=== PATIENT | male | born 1965 | race Caucasian/White ===

== ENCOUNTER 2019-10-19 11:06 | Emergency (ER) | payer BC ==
[~2019-10-19] VITALS: Ht 185.4 cm; Wt 127.0 kg
--- NOTE | 2019-10-19 11:20 | NUR ---
PATIENT TO ER #3 AND PLACED ON AUTOMOTIVE REFINISHER AND SAO2
[2019-10-19 11:21] VITALS: BP_SYST 151
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
[2019-10-19 11:54] LABS: BASOPHILS % (AUTO) 0.2 % (0.0-2.0); HEMOGLOBIN 12.2 g/dL (14.0-18.0); LYMPHOCYTES # (AUTO) 1.2 K/uL (1.0-5.5); LYMPHOCYTES % (AUTO) 15.1 % (20.5-51.5); MEAN CORPUSCULAR HEMOGLOBIN 31 pg (27-31); MEAN CORPUSCULAR HGB CONC 33 % (32-36); MEAN CORPUSCULAR VOLUME 93 fL (79.0-98.0); NEUTROPHILS # (AUTO) 5.7 K/uL (1.8-7.7); NEUTROPHILS % (AUTO) 71.7 % (40.0-70.0); PLATELET COUNT (AUTO) 267 K/uL (130-430); RED BLOOD CELL COUNT(AUTO) 3.99 MIL/uL (4.2-6.2); RED CELL DISTRIBUTION WIDTH 13.6 % (9.0-15.0); WHITE BLOOD COUNT (AUTO) 7.9 K/uL (4.8-10.8)
[2019-10-19 12:08] LABS: ANION GAP 11 (5-15); CALCIUM 9.7 mg/dL (8.4-11.0); CHLORIDE 104 mmol/L (98-107); CREATININE 1.07 mg/dL (0.55-1.30); GLUCOSE 84 mg/dL (70-99); POTASSIUM 3.7 mmol/L (3.5-5.1); SODIUM SERUM 138 mmol/L (136-145); UREA NITROGEN, BLOOD 17 mg/dL (8-21)
[2019-10-19 12:12] LABS: ALANINE AMINOTRANSFERASE 39 U/L (12-78); ALBUMIN 3.4 g/dL (3.4-4.8); ASPARTATE AMINOTRANSFERASE 31 U/L (10-37); PROTHROMBIN TIME 10.3 SECS (9.5-12.5); TOTAL BILIRUBIN 0.9 mg/dL (0.0-1.0); VALPROIC ACID 53 ug/mL (50-100)
[2019-10-19 12:14] LABS: ALCOHOL, BLOOD < 3 mg/dL (<10); GFR AFRICAN AMERICAN 92 mL/min (>90)
[2019-10-19 12:42] LABS: BILIRUBIN,URINE 2+ (NEGATIVE); BLOOD, URINE NEGATIVE (NEGATIVE); CLARITY/URINE CLEAR (CLEAR); COLOR,URINE YELLOW (YELLOW); GLUCOSE,URINE NEGATIVE (NEGATIVE); KETONES,URINE 2+ (NEGATIVE); LEUKOCYTE ESTERASE ,URINE NEGATIVE (NEGATIVE); NITRITE, URINE NEGATIVE (NEGATIVE); PROTEIN URINE TRACE (NEGATIVE)
[2019-10-19 12:51] LABS: BACTERIA,URINE RARE /HPF (None Seen); MUCUS,URINE 1+ /LPF (None Seen); RBC,URINE 0-3 /HPF (0-3); WBC,URINE 0-3 /HPF (0-3)
[2019-10-19 12:53] LABS: BARBITURATE, URINE NEGATIVE (NEG <=200); BENZODIAZEPINE, URINE NEGATIVE (NEG <=150); CANNABINOID, URINE NEGATIVE (NEG <=50); COCAINE, URINE NEGATIVE (NEG <=150); METHAMPHETAMINES SCREEN,URINE NEGATIVE (NEG <=500); OPIATE, URINE NEGATIVE (NEG <=100); PHENCYCLIDINE SCREEN,URINE NEGATIVE (NEG <=25); UR TRICYCLIC ANTIDEPRESSANTS POSITIVE (NEG <=300); URINE AMPHETAMINE NEGATIVE (NEG <=500); URINE METHADONE NEGATIVE (NEG <=200); URINE OXYCODONE SCREEN NEGATIVE (NEG <=100); URINE PROPOXYPHENE SCREEN NEGATIVE (NEG <=300)
--- NOTE | 2019-10-19 13:30 | NUR ---
Neftali mcclure in [facility] - 10/19/19 at 1644 by [email or web address] PT RESTING IN [place] DI[facility] C/O AT THIS TIME, VSS
--- NOTE | 2019-10-19 13:35 | NUR ---
PT RESTING IN [facility] NO C/O AT THIS TIME, VSS
[2019-10-19] MEDS ORDERED: LITH300T PO (14:44)
[2019-10-19] MEDS ORDERED: CLOZ100T32 PO (14:44)
[2019-10-19] MEDS ORDERED: DIVA500T4 PO (14:44)
[2019-10-19] MEDS ORDERED: DOCU250C14 PO (14:44)
[2019-10-19] MEDS ORDERED: CLON2TAB11 PO (14:44)
--- NOTE | 2019-10-19 15:15 | NUR ---
NO DISTRESS NOTED, NO C/O, VSS
--- NOTE | 2019-10-19 15:30 | NUR ---
Neftali mcclure in [facility] - 10/19/19 at 1644 by [email or web address] PT IN [place] ON MONITOR, NO S/S OF DISTRESS.
--- NOTE | 2019-10-19 16:15 | NUR ---
TRANSPORT ARRIVED, PT TAKEN BACK TO ORIGINAL FACILITY, VSS, REPORT GIVEN.
[2019-10-19 16:31] VITALS: BP_SYST 150
--- NOTE | 2019-10-19 16:32 | NUR ---
Note undone in EDM - 10/19/19 at 1644 by KRISTEN Patient given written and verbal discharge instructions and verbalizes understanding. ER MD discussed with patient the results and treatment provided. Patient in stable condition. ID arm band removed. IV catheter removed intact and dressing applied, no active bleeding. Rx of LEVAQUIN given. Patient educated on pain management and to follow up with PMD. Pain Scale 3. Opportunity for questions provided and answered. Medication side effect fact sheet provided.
[2019-10-19 20:09] LABS: LITHIUM 1.03 mEq/L (0.50-1.0)
[2019-10-20] MEDS ORDERED: DIVA500T4 PO (10:32)
[2019-10-20] MEDS ORDERED: CLOZ100T32 PO (11:23)
[2019-10-20] MEDS ORDERED: DIVA-74 PO (11:42)
[2019-10-20] MEDS ORDERED: MOM PO (11:42)
[2019-10-20] MEDS ORDERED: VIS50 PO (11:42)
[2019-10-20] MEDS ORDERED: CLON2TAB11 PO (13:22)
== END 2019-10-19 16:31 ==
LOC: SED 11:06
DX: S00.12XA Contusion of left eyelid and periocular area, initial encounter (principal); F20.9 Schizophrenia, unspecified; R45.851 Suicidal ideations; F31.9 Bipolar disorder, unspecified; W50.0XXA Accidental hit or strike by another person, initial encounter; Y93.89 Activity, other specified; Y92.89 Other specified places as the place of occurrence of the external cause; Y99.8 Other external cause status
CPT/HCPCS: 36415; 70450; 70486; 71045; 80053; 80164; 80178; 80307; 81000; 84484; 85025; 85610; 85730; 93005; 99285; G0482

== ENCOUNTER 2019-10-19 19:23 | Inpatient (IN) | payer BC ==
[~2019-10-19] VITALS: Ht 190.5 cm; Wt 120.7 kg
[2019-10-19 19:23] VITALS: BP_SYST 109
[~2019-10-19 19:23] MED LIST: CLON2TAB11 PO; CLOZ100T32 PO; DIVA500T4 PO; DOCU250C14 PO; LITH300T PO
[2019-10-19 20:13] LABS: BASOPHILS % (AUTO) 0.1 % (0.0-2.0); HEMATOCRIT 37.3 % (36-54); HEMOGLOBIN 12.2 g/dL (14.0-18.0); LYMPHOCYTES # (AUTO) 1.1 K/uL (1.0-5.5); LYMPHOCYTES % (AUTO) 13.1 % (20.5-51.5); MEAN CORPUSCULAR HEMOGLOBIN 31 pg (27-31); MEAN CORPUSCULAR HGB CONC 33 % (32-36); MEAN CORPUSCULAR VOLUME 94 fL (79.0-98.0); MONOCYTES # (AUTO) 1.1 K/uL (0.0-1.0); MONOCYTES % (AUTO) 13.5 % (1.7-9.3); NEUTROPHILS % (AUTO) 73.3 % (40.0-70.0); PLATELET COUNT (AUTO) 265 K/uL (130-430); RED BLOOD CELL COUNT(AUTO) 3.99 MIL/uL (4.2-6.2); RED CELL DISTRIBUTION WIDTH 13.5 % (9.0-15.0); WHITE BLOOD COUNT (AUTO) 8.3 K/uL (4.8-10.8)
[2019-10-19 20:21] LABS: ANION GAP 12 (5-15); CALCIUM 9.4 mg/dL (8.4-11.0); CHLORIDE 105 mmol/L (98-107); GLUCOSE 94 mg/dL (70-99); POTASSIUM 3.8 mmol/L (3.5-5.1); SODIUM SERUM 141 mmol/L (136-145); UREA NITROGEN, BLOOD 14 mg/dL (8-21)
[2019-10-19 20:25] LABS: GFR AFRICAN AMERICAN 99 mL/min (>90)
[2019-10-19 20:28] LABS: PROTHROMBIN TIME 10.4 SECS (9.5-12.5)
[2019-10-19 20:36] LABS: ACETAMINOPHEN 2 ug/mL (1-30); ALANINE AMINOTRANSFERASE 40 U/L (12-78); ALBUMIN 3.3 g/dL (3.4-4.8); ASPARTATE AMINOTRANSFERASE 25 U/L (10-37); THYROID STIMULATING HORMONE 0.44 uIu/mL (0.36-3.74); TOTAL BILIRUBIN 0.7 mg/dL (0.0-1.0)
[2019-10-19 20:40] LABS: ALCOHOL, BLOOD < 3 mg/dL (<10)
[2019-10-19 20:44] LABS: BILIRUBIN,URINE 2+ (NEGATIVE); BLOOD, URINE 2+ (NEGATIVE); COLOR,URINE YELLOW (YELLOW); GLUCOSE,URINE NEGATIVE (NEGATIVE); KETONES,URINE 3+ (NEGATIVE); LEUKOCYTE ESTERASE ,URINE TRACE (NEGATIVE); NITRITE, URINE NEGATIVE (NEGATIVE); PROTEIN URINE 1+ (NEGATIVE)
[2019-10-19] MEDS ORDERED: cefTRIAXone 1 GM IVPB PREMIX 50 ML IV ONE (20:45)
[2019-10-19] MEDS ORDERED: ACYCLOVIR IV 750 MG in D5W 100 ML IV ONE (20:45)
[2019-10-19] MEDS ORDERED: VANCOMYCIN HCL 1,000 MG in NS 250 ML IV ONE (20:45)
[2019-10-19 20:48] LABS: CLARITY/URINE HAZY (CLEAR)
[2019-10-19 20:57] LABS: BARBITURATE, URINE NEGATIVE (NEG <=200); BENZODIAZEPINE, URINE POSITIVE (NEG <=150); CANNABINOID, URINE NEGATIVE (NEG <=50); COCAINE, URINE NEGATIVE (NEG <=150); METHAMPHETAMINES SCREEN,URINE NEGATIVE (NEG <=500); OPIATE, URINE NEGATIVE (NEG <=100); PHENCYCLIDINE SCREEN,URINE NEGATIVE (NEG <=25); URINE AMPHETAMINE NEGATIVE (NEG <=500); URINE METHADONE NEGATIVE (NEG <=200); URINE OXYCODONE SCREEN NEGATIVE (NEG <=100)
[2019-10-19 20:58] LABS: UR TRICYCLIC ANTIDEPRESSANTS POSITIVE (NEG <=300); URINE PROPOXYPHENE SCREEN NEGATIVE (NEG <=300)
[2019-10-19 21:06] LABS: BACTERIA,URINE FEW /HPF (None Seen)
[2019-10-19] MEDS ORDERED: ACYCLOVIR SODIUM 50 MG/ML VIAL IV ONE (21:24)
[2019-10-19] MEDS ORDERED: VANCOMYCIN HCL 1000 MG/VIAL IV ONE (21:24)
[2019-10-20] VITALS (7 sets, daily range): BP systolic 123–148
[2019-10-20] MEDS ORDERED: VANCOMYCIN HCL 1,500 MG in NS 500 ML IV SCH (08:00)
[2019-10-20] MEDS ORDERED: DIVA500T4 PO (10:32)
[2019-10-20] MEDS ORDERED: CLOZ100T32 PO (11:23)
[2019-10-20] MEDS ORDERED: MOM PO (11:42)
[2019-10-20] MEDS ORDERED: VIS50 PO (11:42)
[2019-10-20] MEDS ORDERED: DIVA-74 PO (11:42)
[2019-10-20] MEDS ORDERED: MILK OF MAGNESIA 30 ML UDC PO SCH (13:15)
[2019-10-20] MEDS ORDERED: CLON2TAB11 PO (13:22)
[2019-10-20] MEDS ORDERED: clonazePAM 0.5 MG TABLET PO PRN (13:30)
[2019-10-20] MEDS: DIVALPROEX SODIUM 500 MG TABLET( DEPAKOTE) PO SCH ×3 (14:08→22:48)
[2019-10-20] MEDS: clonazePAM 0.5 MG TABLET PO SCH ×3 (15:24→22:48)
[2019-10-20] MEDS: KCL 20 mEq in D5/0.45NS 1000mL 1,000 ML IV SCH (15:25)
[2019-10-20] MEDS: DOCUSATE SODIUM 250 MG CAPSULE PO SCH ×2 (21:00→22:48)
[2019-10-20] MEDS: CLOZAPINE 100 MG TABLET PO SCH (21:00)
[2019-10-20] MEDS: ACYCLOVIR IV 750 MG in D5W 100 ML IV SCH (22:47)
[2019-10-20] MEDS: ENOXAPARIN SODIUM 40 MG/0.4 ML SYRINGE SUBCUT SCH (22:50)
[2019-10-21] MEDS: KCL 20 mEq in D5/0.45NS 1000mL 1,000 ML IV SCH ×2 (05:49→17:09)
[2019-10-21 08:00] VITALS: BP_SYST 136
[2019-10-21 08:01] VITALS: BP_SYST 136
[2019-10-21] MEDS: DIVALPROEX SODIUM 500 MG TABLET( DEPAKOTE) PO SCH ×3 (08:29→21:07)
[2019-10-21] MEDS: clonazePAM 0.5 MG TABLET PO SCH ×3 (08:29→21:00)
[2019-10-21] MEDS: CLOZAPINE 100 MG TABLET PO SCH ×2 (11:10→21:02)
[2019-10-21] MEDS ORDERED: CLOZAPINE 100 MG TABLET PO ONE (11:15)
[2019-10-21] MEDS ORDERED: COMMUNICATION ORDER XX ONE (11:15)
[2019-10-21 12:30] VITALS: BP_SYST 130
[2019-10-21 17:06] VITALS: BP_SYST 138
[2019-10-21 19:15] VITALS: BP_SYST 133
[2019-10-21] MEDS: DOCUSATE SODIUM 250 MG CAPSULE PO SCH (21:07)
[2019-10-21] MEDS: ACYCLOVIR IV 750 MG in D5W 100 ML IV SCH (21:15)
[2019-10-21] MEDS: ENOXAPARIN SODIUM 40 MG/0.4 ML SYRINGE SUBCUT SCH (21:25)
[2019-10-21 23:51] VITALS: BP_SYST 129
[2019-10-22] MEDS: KCL 20 mEq in D5/0.45NS 1000mL 1,000 ML IV SCH ×2 (05:31→20:34)
[2019-10-22 07:00] VITALS: BP_SYST 133
[2019-10-22 08:28] VITALS: BP_SYST 133
[2019-10-22] MEDS: DIVALPROEX SODIUM 500 MG TABLET( DEPAKOTE) PO SCH ×3 (08:45→20:36)
[2019-10-22] MEDS: clonazePAM 0.5 MG TABLET PO SCH ×3 (08:47→20:36)
[2019-10-22] MEDS: HALOPERIDOL LACTATE 5 MG/ML VIAL IM PRN (09:59)
[2019-10-22] MEDS: DIPHENHYDRAMINE INJ 50 MG/ML VIAL IM PRN (11:33)
[2019-10-22 14:18] VITALS: BP_SYST 153
[2019-10-22 19:37] VITALS: BP_SYST 148
[2019-10-22] MEDS: ACYCLOVIR IV 750 MG in D5W 100 ML IV SCH (20:34)
[2019-10-22] MEDS: DOCUSATE SODIUM 250 MG CAPSULE PO SCH (20:36)
[2019-10-22] MEDS: CLOZAPINE 100 MG TABLET PO SCH (20:36)
[2019-10-22] MEDS: ENOXAPARIN SODIUM 40 MG/0.4 ML SYRINGE SUBCUT SCH (20:57)
[2019-10-23 00:03] VITALS: BP_SYST 146
[2019-10-23] MEDS: LORazepam 2 MG/ML VIAL IM PRN (01:25)
[2019-10-23 08:15] VITALS: BP_SYST 144
[2019-10-23] MEDS: clonazePAM 0.5 MG TABLET PO SCH ×3 (08:42→21:00)
[2019-10-23] MEDS: DIVALPROEX SODIUM 500 MG TABLET( DEPAKOTE) PO SCH ×3 (08:42→21:00)
[2019-10-23] MEDS: KCL 20 mEq in D5/0.45NS 1000mL 1,000 ML IV SCH ×2 (08:43→23:56)
[2019-10-23 12:11] VITALS: BP_SYST 149
[2019-10-23 16:34] VITALS: BP_SYST 151
[2019-10-23 20:00] VITALS: BP_SYST 133
[2019-10-23] MEDS: HALOPERIDOL LACTATE 5 MG/ML VIAL IM PRN (23:07)
[2019-10-23] MEDS: ENOXAPARIN SODIUM 40 MG/0.4 ML SYRINGE SUBCUT SCH (23:09)
[2019-10-23] MEDS: DOCUSATE SODIUM 250 MG CAPSULE PO SCH (23:10)
[2019-10-23] MEDS: ACYCLOVIR IV 750 MG in D5W 100 ML IV SCH (23:58)
[2019-10-24] VITALS: BP_SYST 131
[2019-10-24] MEDS: CLOZAPINE 100 MG TABLET PO SCH ×2 (00:14→21:10)
[2019-10-24 04:36] VITALS: BP_SYST 138
[2019-10-24 07:40] VITALS: BP_SYST 152
[2019-10-24] MEDS: DIVALPROEX SODIUM 500 MG TABLET( DEPAKOTE) PO SCH ×3 (09:24→21:09)
[2019-10-24] MEDS: clonazePAM 0.5 MG TABLET PO SCH ×3 (09:25→21:09)
[2019-10-24 11:31] VITALS: BP_SYST 148
[2019-10-24] MEDS: KCL 20 mEq in D5/0.45NS 1000mL 1,000 ML IV SCH (14:38)
[2019-10-24 15:25] VITALS: BP_SYST 133
[2019-10-24] MEDS: HALOPERIDOL LACTATE 5 MG/ML VIAL IM PRN ×2 (15:43→22:51)
[2019-10-24 20:07] VITALS: BP_SYST 145
[2019-10-24] MEDS: ACYCLOVIR IV 750 MG in D5W 100 ML IV SCH (21:07)
[2019-10-24] MEDS: DOCUSATE SODIUM 250 MG CAPSULE PO SCH (21:09)
[2019-10-24] MEDS: ENOXAPARIN SODIUM 40 MG/0.4 ML SYRINGE SUBCUT SCH (21:12)
[2019-10-25 00:48] VITALS: BP_SYST 110
[2019-10-25] MEDS: KCL 20 mEq in D5/0.45NS 1000mL 1,000 ML IV SCH ×2 (01:09→17:26)
[2019-10-25] MEDS: LORazepam 2 MG/ML VIAL IM PRN (03:43)
[2019-10-25 07:48] VITALS: BP_SYST 106
[2019-10-25] MEDS: clonazePAM 0.5 MG TABLET PO SCH ×3 (09:18→20:00)
[2019-10-25] MEDS: DIVALPROEX SODIUM 500 MG TABLET( DEPAKOTE) PO SCH ×3 (09:18→20:00)
[2019-10-25 11:50] VITALS: BP_SYST 131
[2019-10-25 16:25] VITALS: BP_SYST 127
[2019-10-25 19:40] VITALS: BP_SYST 132
[2019-10-25] MEDS: DOCUSATE SODIUM 250 MG CAPSULE PO SCH (20:00)
[2019-10-25] MEDS: CLOZAPINE 100 MG TABLET PO SCH (20:01)
[2019-10-25] MEDS: HALOPERIDOL LACTATE 5 MG/ML VIAL IM PRN (20:01)
[2019-10-25] MEDS: ENOXAPARIN SODIUM 40 MG/0.4 ML SYRINGE SUBCUT SCH (20:02)
[2019-10-25] MEDS: DIPHENHYDRAMINE INJ 50 MG/ML VIAL IM PRN (20:49)
[2019-10-26 02:01] VITALS: BP_SYST 135
[2019-10-26] MEDS: KCL 20 mEq in D5/0.45NS 1000mL 1,000 ML IV SCH ×2 (02:38→16:05)
[2019-10-26] MEDS: LORazepam 2 MG/ML VIAL IM PRN (04:53)
[2019-10-26 08:00] VITALS: BP_SYST 127
[2019-10-26] MEDS: DIVALPROEX SODIUM 500 MG TABLET( DEPAKOTE) PO SCH ×3 (08:30→21:33)
[2019-10-26] MEDS: clonazePAM 0.5 MG TABLET PO SCH ×3 (08:30→21:33)
[2019-10-26 12:00] VITALS: BP_SYST 126
[2019-10-26 16:00] VITALS: BP_SYST 133
[2019-10-26 20:00] VITALS: BP_SYST 138
[2019-10-26] MEDS: CLOZAPINE 100 MG TABLET PO SCH (21:32)
[2019-10-26] MEDS: DOCUSATE SODIUM 250 MG CAPSULE PO SCH (21:33)
[2019-10-26] MEDS: ENOXAPARIN SODIUM 40 MG/0.4 ML SYRINGE SUBCUT SCH (21:49)
[2019-10-27] VITALS: BP_SYST 132
[2019-10-27] MEDS: HALOPERIDOL LACTATE 5 MG/ML VIAL IM PRN ×2 (04:50→20:11)
[2019-10-27] MEDS: DIPHENHYDRAMINE INJ 50 MG/ML VIAL IM PRN ×2 (04:51→20:11)
[2019-10-27] MEDS: LORazepam 2 MG/ML VIAL IM PRN ×2 (04:51→20:11)
[2019-10-27] MEDS: KCL 20 mEq in D5/0.45NS 1000mL 1,000 ML IV SCH ×2 (05:51→23:30)
[2019-10-27 08:00] VITALS: BP_SYST 144
[2019-10-27] MEDS: clonazePAM 0.5 MG TABLET PO SCH ×2 (09:38→21:53)
[2019-10-27] MEDS: DIVALPROEX SODIUM 500 MG TABLET( DEPAKOTE) PO SCH ×2 (09:38→21:54)
[2019-10-27 12:00] VITALS: BP_SYST 145
[2019-10-27 16:00] VITALS: BP_SYST 150
[2019-10-27 20:00] VITALS: BP_SYST 132
[2019-10-27] MEDS: CLOZAPINE 100 MG TABLET PO SCH (21:52)
[2019-10-27] MEDS: DOCUSATE SODIUM 250 MG CAPSULE PO SCH (21:53)
[2019-10-27] MEDS: ENOXAPARIN SODIUM 40 MG/0.4 ML SYRINGE SUBCUT SCH (22:08)
[2019-10-28 01:45] VITALS: BP_SYST 135
[2019-10-28] MEDS: LORazepam 2 MG/ML VIAL IVP PRN (04:13)
[2019-10-28 08:00] VITALS: BP_SYST 166
[2019-10-28] MEDS: DIPHENHYDRAMINE INJ 50 MG/ML VIAL IM PRN (11:01)
[2019-10-28] MEDS: HALOPERIDOL LACTATE 5 MG/ML VIAL IM PRN (11:02)
[2019-10-28] MEDS: LORazepam 2 MG/ML VIAL IM PRN (11:02)
[2019-10-28] MEDS: clonazePAM 0.5 MG TABLET PO SCH ×3 (11:10→21:55)
[2019-10-28] MEDS: DIVALPROEX SODIUM 500 MG TABLET( DEPAKOTE) PO SCH ×3 (11:12→21:55)
[2019-10-28 12:00] VITALS: BP_SYST 145
[2019-10-28] MEDS: KCL 20 mEq in D5/0.45NS 1000mL 1,000 ML IV SCH ×2 (15:00→16:08)
[2019-10-28 16:00] VITALS: BP_SYST 126
[2019-10-28 20:00] VITALS: BP_SYST 131
[2019-10-28] MEDS: DOCUSATE SODIUM 250 MG CAPSULE PO SCH (21:55)
[2019-10-28] MEDS: CLOZAPINE 100 MG TABLET PO SCH (21:56)
[2019-10-28] MEDS: ENOXAPARIN SODIUM 40 MG/0.4 ML SYRINGE SUBCUT SCH (21:58)
[2019-10-29 00:10] VITALS: BP_SYST 135
[2019-10-29] MEDS: KCL 20 mEq in D5/0.45NS 1000mL 1,000 ML IV SCH ×2 (03:19→14:40)
[2019-10-29] MEDS: LORazepam 2 MG/ML VIAL IVP PRN (05:53)
[2019-10-29 09:27] VITALS: BP_SYST 139
[2019-10-29] MEDS: DIVALPROEX SODIUM 500 MG TABLET( DEPAKOTE) PO SCH ×3 (09:49→22:10)
[2019-10-29] MEDS: clonazePAM 0.5 MG TABLET PO SCH ×3 (09:50→22:10)
[2019-10-29] MEDS: LORazepam 2 MG/ML VIAL IM PRN (12:20)
[2019-10-29] MEDS: DIPHENHYDRAMINE INJ 50 MG/ML VIAL IM PRN (12:20)
[2019-10-29] MEDS: HALOPERIDOL LACTATE 5 MG/ML VIAL IM PRN (12:20)
[2019-10-29 12:36] VITALS: BP_SYST 129
[2019-10-29 16:13] VITALS: BP_SYST 156
[2019-10-29 19:51] VITALS: BP_SYST 149
[2019-10-29] MEDS: DOCUSATE SODIUM 250 MG CAPSULE PO SCH (22:10)
[2019-10-29] MEDS: ENOXAPARIN SODIUM 40 MG/0.4 ML SYRINGE SUBCUT SCH (22:11)
[2019-10-29] MEDS: CLOZAPINE 100 MG TABLET PO SCH (22:11)
[2019-10-30 00:01] VITALS: BP_SYST 150
[2019-10-30 08:26] VITALS: BP_SYST 140
[2019-10-30] MEDS: DIVALPROEX SODIUM 500 MG TABLET( DEPAKOTE) PO SCH ×3 (08:49→21:11)
[2019-10-30] MEDS: clonazePAM 0.5 MG TABLET PO SCH ×3 (08:49→21:10)
[2019-10-30] MEDS: LORazepam 2 MG/ML VIAL IM PRN (10:30)
[2019-10-30] MEDS: HALOPERIDOL LACTATE 5 MG/ML VIAL IM PRN (10:30)
[2019-10-30] MEDS: DIPHENHYDRAMINE INJ 50 MG/ML VIAL IM PRN (10:30)
[2019-10-30 12:22] VITALS: BP_SYST 148
[2019-10-30 16:02] VITALS: BP_SYST 143
[2019-10-30 20:04] VITALS: BP_SYST 138
[2019-10-30] MEDS: DOCUSATE SODIUM 250 MG CAPSULE PO SCH (21:10)
[2019-10-30] MEDS: CLOZAPINE 100 MG TABLET PO SCH (21:11)
[2019-10-30] MEDS: ENOXAPARIN SODIUM 40 MG/0.4 ML SYRINGE SUBCUT SCH (21:16)
[2019-10-31] MEDS: LORazepam 2 MG/ML VIAL IVP PRN ×2 (03:56→08:39)
[2019-10-31 07:16] VITALS: BP_SYST 141
[2019-10-31] MEDS: clonazePAM 0.5 MG TABLET PO SCH ×3 (08:38→20:39)
[2019-10-31] MEDS: DIVALPROEX SODIUM 500 MG TABLET( DEPAKOTE) PO SCH ×3 (08:38→20:39)
[2019-10-31 09:32] VITALS: BP_SYST 141
[2019-10-31 11:30] VITALS: BP_SYST 123
[2019-10-31] MEDS: DIPHENHYDRAMINE INJ 50 MG/ML VIAL IM PRN (12:04)
[2019-10-31] MEDS: HALOPERIDOL LACTATE 5 MG/ML VIAL IM PRN (12:04)
[2019-10-31 15:29] VITALS: BP_SYST 140
[2019-10-31 19:55] VITALS: BP_SYST 151
[2019-10-31] MEDS: DOCUSATE SODIUM 250 MG CAPSULE PO SCH (20:38)
[2019-10-31] MEDS: CLOZAPINE 100 MG TABLET PO SCH (20:40)
[2019-10-31] MEDS: ENOXAPARIN SODIUM 40 MG/0.4 ML SYRINGE SUBCUT SCH (20:41)
[2019-11-01] MEDS: LORazepam 2 MG/ML VIAL IVP PRN (00:15)
[2019-11-01 00:28] VITALS: BP_SYST 136
[2019-11-01] MEDS: HALOPERIDOL LACTATE 5 MG/ML VIAL IM PRN (01:24)
[2019-11-01] MEDS: DIPHENHYDRAMINE INJ 50 MG/ML VIAL IM PRN (01:25)
[2019-11-01 04:00] VITALS: BP_SYST 130
[2019-11-01 07:27] VITALS: BP_SYST 138
[2019-11-01 08:13] LABS: ALBUMIN 2.9 g/dL (3.4-4.8); CALCIUM 9.3 mg/dL (8.4-11.0); CREATININE 0.72 mg/dL (0.55-1.30); POTASSIUM 4.1 mmol/L (3.5-5.1); TOTAL BILIRUBIN 0.3 mg/dL (0.0-1.0)
[2019-11-01] MEDS: QUEtiapine FUMARATE 100 MG TABLET PO SCH ×4 (08:37→21:59)
[2019-11-01] MEDS: clonazePAM 0.5 MG TABLET PO SCH ×4 (08:37→21:58)
[2019-11-01] MEDS: DIVALPROEX SODIUM 500 MG TABLET( DEPAKOTE) PO SCH ×3 (08:38→22:05)
[2019-11-01 11:31] VITALS: BP_SYST 135
[2019-11-01 16:00] VITALS: BP_SYST 103
[2019-11-01 19:34] VITALS: BP_SYST 133
[2019-11-01] MEDS: DOCUSATE SODIUM 250 MG CAPSULE PO SCH ×2 (21:58→22:24)
[2019-11-01] MEDS: traZODone HCL 50 MG TABLET (DESYREL) PO SCH (21:59)
[2019-11-01] MEDS: PATIENT'S OWN TABLET PO SCH (22:01)
[2019-11-01] MEDS: ENOXAPARIN SODIUM 40 MG/0.4 ML SYRINGE SUBCUT SCH (22:03)
[2019-11-02 01:49] VITALS: BP_SYST 127
[2019-11-02 04:00] VITALS: BP_SYST 123
[2019-11-02 06:31] LABS: HEMATOCRIT 36.7 % (36-54); HEMOGLOBIN 12.1 g/dL (14.0-18.0); MEAN CORPUSCULAR HEMOGLOBIN 31 pg (27-31); MEAN CORPUSCULAR HGB CONC 33 % (32-36); MEAN CORPUSCULAR VOLUME 93 fL (79.0-98.0); RED BLOOD CELL COUNT(AUTO) 3.96 MIL/uL (4.2-6.2); WHITE BLOOD COUNT (AUTO) 4.9 K/uL (4.8-10.8)
[2019-11-02 06:32] LABS: BASOPHILS % (AUTO) 0.1 % (0.0-2.0); EOSINOPHILS % (AUTO) 0.2 % (0.0-4.0); LYMPHOCYTES # (AUTO) 1.6 K/uL (1.0-5.5); LYMPHOCYTES % (AUTO) 33.8 % (20.5-51.5); MONOCYTES # (AUTO) 0.8 K/uL (0.0-1.0); MONOCYTES % (AUTO) 17.1 % (1.7-9.3); NEUTROPHILS # (AUTO) 2.4 K/uL (1.8-7.7); NEUTROPHILS % (AUTO) 48.8 % (40.0-70.0); PLATELET COUNT (AUTO) 226 K/uL (130-430); RED CELL DISTRIBUTION WIDTH 14.2 % (9.0-15.0)
[2019-11-02 06:56] LABS: CREATININE 0.82 mg/dL (0.55-1.30); POTASSIUM 3.8 mmol/L (3.5-5.1)
[2019-11-02 07:49] VITALS: BP_SYST 132
[2019-11-02] MEDS: QUEtiapine FUMARATE 100 MG TABLET PO SCH ×3 (08:40→20:06)
[2019-11-02] MEDS: clonazePAM 0.5 MG TABLET PO SCH ×3 (08:40→20:06)
[2019-11-02] MEDS: DIVALPROEX SODIUM 500 MG TABLET( DEPAKOTE) PO SCH ×3 (08:41→20:07)
[2019-11-02 12:29] VITALS: BP_SYST 135
[2019-11-02 16:53] VITALS: BP_SYST 144
[2019-11-02] MEDS: HALOPERIDOL LACTATE 5 MG/ML VIAL IM PRN (17:46)
[2019-11-02 20:00] VITALS: BP_SYST 135
[2019-11-02] MEDS: DOCUSATE SODIUM 250 MG CAPSULE PO SCH (20:06)
[2019-11-02] MEDS: traZODone HCL 50 MG TABLET (DESYREL) PO SCH (20:06)
[2019-11-02] MEDS: ENOXAPARIN SODIUM 40 MG/0.4 ML SYRINGE SUBCUT SCH (20:12)
[2019-11-02] MEDS: PATIENT'S OWN TABLET PO SCH (21:53)
[2019-11-03] VITALS: BP_SYST 130
[2019-11-03 07:57] VITALS: BP_SYST 118
[2019-11-03] MEDS: clonazePAM 0.5 MG TABLET PO SCH ×2 (09:22→14:55)
[2019-11-03] MEDS: QUEtiapine FUMARATE 100 MG TABLET PO SCH ×2 (09:22→14:55)
[2019-11-03] MEDS: DIVALPROEX SODIUM 500 MG TABLET( DEPAKOTE) PO SCH ×2 (09:22→14:55)
[2019-11-03 12:20] VITALS: BP_SYST 127
[2019-11-03 16:00] VITALS: BP_SYST 120
[2019-11-03 18:05] VITALS: BP_SYST 127
== END 2019-11-03 18:45 | DRG 52 ==
LOC: SED 19:23 → SIC 22:10 → STU 22:30 → SMU 10-29 11:00
PROVIDERS: ADMIT Family Medicine; ATTEND Family Medicine
DX: G92 Toxic encephalopathy (principal); F05 Delirium due to known physiological condition; N39.0 Urinary tract infection, site not specified; F20.9 Schizophrenia, unspecified; F31.9 Bipolar disorder, unspecified; Z79.899 Other long term (current) drug therapy; Z78.1 Physical restraint status
CPT/HCPCS: 36415; 80048; 80053; 80164-TC; 80307; 81000-TC; 82550-TC; 82962; 83605; 83735-TC; 84439; 84443-TC; 84484; 85025; 85610-TC; 85651-TC; 85730-TC; 87040-TC; 87081; 87086; 87529; 93005; 96365; 96368; 97110-GP; 97530-GP; 99285; G0378; G0480; G0481; G0482; J0133; J0696; J1200; J1630; J1650; J2060; J3370; J7040; J7050; J7060